=== PATIENT | female | born 1975 | race Caucasian/White ===

== ENCOUNTER → 2017-01-22 | Outpatient (CLI) | payer OTHER ==
--- NOTE | 2017-01-22 12:50 | XR ---
EXAMINATION TYPE: XR cervical spine comp, XR lumbar spine 2 or 3V, XR thoracic spine 2V DATE OF EXAM ORDERED: 01/22/2017 12:33 PM HISTORY: Neck pain. COMPARISON: None. FINDINGS: There is a reversal of normal cervical lordosis. There is minor antegrade listhesis of C3 on C4. Alignment is otherwise maintained. Atlantoaxial relationships are normal. There is mild disc space loss at C4-5 and C5-6 as well as C6-7. There is minor hypertrophic spondylos is at C5-6. There is intervertebral foraminal narrowing on the right at C3-4. There is no significant foraminal n arrowing on the left. The uncovertebral joints appear maintained. In the thoracic spine, the upper thoracic spine is not well seen in the lateral projection. Vertebral body height and alignment appear maintained. No fractures are seen. The spaces are reasonably well-m aintained. Paraspinal soft tissues are normal. The lumbar spine, vertebral body height and alignment are maintained. There is no evidence of spondyl olysis or spondylolisthesis. The pedicles are intact. IMPRESSION: 1. MILD DEGENERATIVE CHANGE, CERVICAL SPINE. 2. MODERATE INTERVERTEBRAL FORAMINAL NARROWING ON THE RIGHT AT C3-4.
== END | disposition home or self-care (01) ==
LOC: RADXRMAIN 12:03
PROVIDERS: ATTEND Internal Medicine
DX: M47.812 Spondylosis without myelopathy or radiculopathy, cervical region (principal); M99.71 Connective tissue and disc stenosis of intervertebral foramina of cervical region; R54 Age-related physical debility
CPT/HCPCS: 72050; 72070; 72100

== ENCOUNTER 2017-04-22 13:28 | Emergency (ER) | payer OTHER ==
[2017-04-22 13:37] VITALS: BP 129/72; PULSE 86; RESP 18; TEMP 98.1
[2017-04-22] MEDS ORDERED: CLINDAMYCIN 150 MG CAP PO STA (13:43)
[2017-04-22] MEDS ORDERED: HYDROcodone/APAP 10-325MG 1 EACH TAB PO ONE (13:43)
[2017-04-22] MEDS ORDERED: BUPIVACAINE (PF) 0.5% 30 ML VIAL SQ STA (13:44)
--- NOTE | 2017-04-22 14:08 | ED ---
Extremity Problem HPI - General Chief complaint: Extremity Problem,Nontraumatic Stated complaint: Hands swollen/numb Time Seen by Provider: 04/22/17 13:42 Source: patient, RN notes reviewed, old records reviewed Mode of arrival: ambulatory Limitations: no limitations - History of Present Illness Initial comments: Patient is a 41-year-old female presenting to emergency Department chief complaint of bilateral hand pain. 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 She states that over the past 3 days it's been some swelling and numbness and tingling to all of her hands. She states it starts in her wrist and goes down. She reports that she has had some previous problems with her right elbow and was diagnosed with tennis elbow. Patient denies any specific elbow or shoulder pain at this time. She denies any fever or chills, chest pain, shortness breath, nausea vomiting, abdominal pain, dysuria hematuria or any other symptoms. - Related Data Previous Rx's Medication Instructions Recorded Dexamethasone 0.75 mg PO DAILY #12 tab 04/22/17 traMADol HCl [Ultram] 50 mg PO Q6H PRN #10 tab 04/22/17 Allergies Allergy/AdvReac Type Severity Reaction Status Date / Time amitriptyline Allergy Unknown Verified 04/22/17 13:37 topiramate [From Topamax] Allergy Unknown Verified 04/22/17 13:37 Review of Systems ROS Statement: Those systems with pertinent positive or pertinent negative responses have been documented in the HPI. ROS Other: All systems not noted in ROS Statement are negative. Past Medical History Past Medical History: Osteoarthritis (OA) Additional Past Medical History / Comment(s): chronic neck and shoulder pain History of Any Multi-Drug Resistant Organisms: None Reported Past Surgical History: Section Additional Past Surgical History / Comment(s): right ovary removed Past Psychological History: No Psychological Hx Reported Smoking Status: Current every day smoker Past Alcohol Use History: Occasional Past Drug Use History: None Reported General Exam - General Exam Comments Initial Comments: Well-appearing 41-year-old female. No acute distress. Limitations: no limitations General appearance: alert, in no apparent distress Head exam: Present: atraumatic, normocephalic, normal inspection Eye exam: Present: normal appearance, PERRL, EOMI. Absent: scleral icterus, conjunctival injection, periorbital swelling ENT exam: Present: normal exam, mucous membranes moist Neck exam: Present: normal inspection. Absent: tenderness, meningismus, lymphadenopathy Respiratory exam: Present: normal lung sounds bilaterally. Absent: respiratory distress, wheezes, rales, rhonchi, stridor Cardiovascular Exam: Present: regular rate, normal rhythm, normal heart sounds. Absent: systolic murmur, diastolic murmur, rubs, gallop, clicks GI/Abdominal exam: Present: soft, normal bowel sounds. Absent: distended, tenderness, guarding, rebound, rigid Extremities exam: Present: normal inspection, full ROM, normal capillary refill , other (Patient reports pain and tenderness over bilateral breasts. She has full range of motion. She has less than 2 second capillary refill and full range of motion of her fingers.). Absent: tenderness, pedal edema, joint swelling, calf tenderness Back exam: Present: normal inspection Neurological exam: Present: alert, oriented X3, CN II-XII intact Psychiatric exam: Present: normal affect, normal mood Skin exam: Present: warm, dry, intact, normal color. Absent: rash Course Vital Signs 04/22/17 13:35 Temperature 98.1 F Pulse Rate 86 Respiratory 18 Rate Blood Pressure 129/72 O2 Sat by Pulse 100 Oximetry Medical Decision Making - Medical Decision Making Patient is a 41-year-old female presenting to emergency Department chief complaint of bilateral hand pain. 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 She states that over the past 3 days it's been some swelling and numbness and tingling to all of her hands. She states it starts in her wrist and goes down. She reports that she has had some previous problems with her right elbow and was diagnosed with tennis elbow. Patient has positive Tinel test. With bilateral carpal tunnel. Patient will be given a prescription for a left wrist sprain. She states that she does have one for her right. Patient will also be started on steroids short course of pain medicine and anti-inflammatory medicine. Discussed using her prescription for meloxicam. Patient agrees to following up with orthopedic. Patient understands treatment plan will comply. Return parameters were discussed. Disposition Clinical Impression: Carpal tunnel syndrome on both sides Disposition: HOME SELF-CARE Condition: Good Instructions: Paresthesia (ED) Additional Instructions: Advised to put ice over the wrist and hands. Use the wrist splint as directed. Also take the anti-inflammatory medication with a steroid and her previously prescribed meloxicam. Patient can also take the pain medication and 90 with the pain is severe. Discussed return to the emergency department if any alarming signs or symptoms occur. Follow-up with orthopedic physician. Prescriptions: Dexamethasone 0.75 mg PO DAILY #12 tab traMADol HCl [Ultram] 50 mg PO Q6H PRN #10 tab PRN Reason: Pain Referrals: Elvia Blanco MD [Primary Care Provider] - 1-2 days Iván Luciano PAC [PHYSICIAN GRUBBER] - 1-2 days Time of Disposition: 14:25
== END 2017-04-22 14:44 | disposition home or self-care (01) ==
LOC: EC 13:28
DX: G56.03 Carpal tunnel syndrome, bilateral upper limbs (principal); M19.90 Unspecified osteoarthritis, unspecified site; F17.200 Nicotine dependence, unspecified, uncomplicated; Z88.8 Allergy status to other drugs, medicaments and biological substances
CPT/HCPCS: 99283

== ENCOUNTER → 2017-06-22 | Outpatient (CLI) | payer OTHER ==
--- NOTE | 2017-06-22 13:05 | US ---
EXAMINATION TYPE: US thyroid st tissue head/neck DATE OF EXAM: 06/22/2017 COMPARISON: NONE CLINICAL HISTORY: R22.0 Swelling, Mass, Or Lump In Neck. GLAND SIZE: Right Lobe: 4.8 x 1.3 x 1.4 cm Overall Parenchyma: homogenous Left Lobe: 4.6 x 1.3 x 1.6 cm Overall Parenchyma: homogeneous Isthmus Thickness: 0.3 cm NODULES RIGHT: # of nodules measured on right: 1 1. 0.9 X 0.7 x 0.8 cm hypoechoic solid nodule at the mid pole with well-defined margins. This nodu le is wider than tall and shows no intranodular vascularity. This nodule also demonstrates increased through transmission despite diffuse low level internal echoes. This is favored to be located within the thyroid gland rather than parathyroid in origin. LEFT: # of nodules measured on left: 0 ISTHMUS: # of nodules measured in the isthmus: 0 Bilateral neck scanned, no evidence of lymphadenopathy IMPRESSION: Solitary right subcentimeter thyroid nodule. Surveillance is recommended.
== END | disposition home or self-care (01) ==
LOC: RADUSWWP 12:19
PROVIDERS: ATTEND Internal Medicine
DX: E04.1 Nontoxic single thyroid nodule (principal)
CPT/HCPCS: 76536

== ENCOUNTER 2019-07-02 15:19 | Emergency (ER) | payer BC, OTHER ==
[2019-07-02] MEDS ORDERED: HYDROcodone/APAP 5-325MG 1 EACH TAB PO STA (15:44)
[2019-07-02] MEDS ORDERED: IBUPROFEN 600 MG TAB PO STA (15:44)
--- NOTE | 2019-07-02 15:48 | ED ---
Abdominal Pain HPI - General Chief Complaint: Abdominal Pain Stated Complaint: low back pain Time Seen by Provider: 07/02/19 15:32 Source: patient, RN notes reviewed Mode of arrival: ambulatory Limitations: no limitations - History of Present Illness Initial Comments: 44-year-old female presented to the ER with chief complaint of low back pain. This has been ongoing for last couple weeks. Patient states is worse in her right low back. Patient states that she is worse with movement. Denies any abdominal pain she does state that her urine is more dark than usual she has no dysuria no reported fever states that she felt like she had some chills. Patient denies any trauma. She has no lower extremity symptoms paresthesias or weakness.Denies any saddle anesthesias no bowel bladder incontinence or retention. - Related Data Previous Rx's Medication Instructions Recorded Dexamethasone 0.75 mg PO DAILY #12 tab 04/22/17 traMADol HCl [Ultram] 50 mg PO Q6H PRN #10 tab 04/22/17 Cephalexin [Keflex] 500 mg PO Q8HR #21 cap 07/02/19 Cyclobenzaprine [Flexeril] 10 mg PO TID PRN #15 tab 07/02/19 Ibuprofen [Motrin] 600 mg PO Q8HR PRN #30 tab 07/02/19 Allergies Allergy/AdvReac Type Severity Reaction Status Date / Time amitriptyline Allergy Unknown Verified 07/02/19 15:30 topiramate [From Topamax] Allergy Unknown Verified 07/02/19 15:30 Review of Systems ROS Statement: Those systems with pertinent positive or pertinent negative responses have been documented in the HPI. ROS Other: All systems not noted in ROS Statement are negative. Past Medical History Past Medical History: Osteoarthritis (OA) Additional Past Medical History / Comment(s): chronic neck and shoulder pain History of Any Multi-Drug Resistant Organisms: None Reported Past Surgical History: Section Additional Past Surgical History / Comment(s): right ovary removed Past Psychological History: No Psychological Hx Reported Smoking Status: Current every day smoker Past Alcohol Use History: Occasional Past Drug Use History: None Reported General Exam Limitations: no limitations General appearance: alert, in no apparent distress Head exam: Present: atraumatic, normocephalic, normal inspection Eye exam: Present: normal appearance, PERRL, EOMI. Absent: scleral icterus, conjunctival injection, periorbital swelling ENT exam: Present: normal exam, normal oropharynx, mucous membranes moist Neck exam: Present: normal inspection, full ROM. Absent: tenderness, meningismus, lymphadenopathy Respiratory exam: Present: normal lung sounds bilaterally. Absent: respiratory distress, wheezes, rales, rhonchi, stridor Cardiovascular Exam: Present: regular rate, normal rhythm, normal heart sounds. Absent: systolic murmur, diastolic murmur, rubs, gallop, clicks GI/Abdominal exam: Present: soft, normal bowel sounds. Absent: distended, tenderness, guarding, rebound, rigid Back exam: Present: full ROM, tenderness, paraspinal tenderness. Absent: CVA tenderness (R), CVA tenderness (L), vertebral tenderness Neurological exam: Present: alert, oriented X3, CN II-XII intact Skin exam: Present: warm, dry, intact, normal color. Absent: rash Course Vital Signs 07/02/19 15:28 Temperature 97.9 F Pulse Rate 103 H Respiratory 16 Rate Blood Pressure 123/81 O2 Sat by Pulse 100 Oximetry Medical Decision Making - Medical Decision Making 44-year-old female presents for right low back pain, right flank pain. Urinalysis was initially obtained which showed evidence of blood. Patient had CT and shows evidence of possible colitis though she is asymptomatic and most likely to be colitis. Patient has evidence of cystitis on CT. Patient will be treated accordingly. Patient also is a lumbar strain. Patient will be discharged return parameters were discussed. - Lab Data Lab Results 07/02/19 Range/Units 16:03 Urine Color Yellow Urine Appearance Clear (Clear) Urine pH 6.0 (5.0-8.0) Ur Specific [place] 1.025 (1.001-1.035) Urine Protein Trace H (Negative) Urine Glucose (UA) Negative (Negative) Urine Ketones Negative (Negative) Urine Blood Small H (Negative) Urine Nitrite Negative (Negative) Urine Bilirubin Negative (Negative) Urine Urobilinogen 8.0 (<2.0) mg/dL Ur Leukocyte Esterase Negative (Negative) Urine RBC 10 H (0-5) /hpf Urine WBC 1 (0-5) /hpf Ur Squamous Epith Cells 7 H (0-4) /hpf Amorphous Sediment Rare H (None) /hpf Urine Mucus Occasional H (None) /hpf Disposition Clinical Impression: Lumbar back pain, Cystitis Disposition: HOME SELF-CARE Condition: Stable Instructions (If sedation given, give patient instructions): Acute Low Back Pain (ED) Additional Instructions: Please return to the Emergency Department if symptoms worsen or any other concerns. Prescriptions: Cyclobenzaprine [Flexeril] 10 mg PO TID PRN #15 tab PRN Reason: Muscle Spasm Cephalexin [Keflex] 500 mg PO Q8HR #21 cap Ibuprofen [Motrin] 600 mg PO Q8HR PRN #30 tab PRN Reason: Pain Is patient prescribed a controlled substance at d/c from ED?: No Referrals: None,Stated [Primary Care Provider] - 1-2 days Time of Disposition: 17:05
[2019-07-02 16:14] LABS: Amorphous Sediment,Urine Rare /hpf; Appearance,Urine Clear (Clear); Bilirubin,Urine Negative (Negative); Blood,Urine Small (Negative); Color,Urine Yellow; Glucose,Urine (UA) Negative (Negative); Ketones,Urine Negative (Negative); Leukocyte Esterase,Urine Negative (Negative); Mucus,Urine Occasional /hpf; Nitrite,Urine Negative (Negative); Protein,Urine Trace (Negative); RBC,Urine 10 /hpf (0-5); Specific Gravity,Urine 1.025 (1.001-1.035); Squamous Epithelial Cell,Urine 7 /hpf (0-4)
--- NOTE | 2019-07-02 16:56 | CT ---
EXAMINATION TYPE: CT abdomen pelvis wo con DATE OF EXAM: 07/02/2019 HISTORY: Right sided flank pain CT DLP: 406.3 mGycm. Automated Exposure Control for Dose Reduction was Utilized. TECHNIQUE: CT scan of the abdomen and pelvis is performed without oral or IV contrast. COMPARISON: NONE FINDINGS: Within the limitations of a non-contrast study, the following observations are made. LUNG BASES: No significant abnormality is appreciated. LIVER/GB: No significant abnormality is appreciated. PANCREAS: No significant abnormality is seen. SPLEEN: No significant abnormality is seen. ADRENALS: No significant abnormality is seen. KIDNEYS: No renal stones or hydronephrosis is seen bilaterally. No intraluminal calculi and poorly di stended bladder. Bladder wall thickness is 5 to 6 mm which is upper limits of normal to minimally thi ckened for a poorly distended bladder. BOWEL: Evaluation bowel suboptimal secondary to lack of enteric contrast. Appendix appears within nor mal limits for medial aspect of cecum. Mild wall thickening involving the right in transverse colon i s present.. GENITAL ORGANS: Anteverted uterus. Surgical sutures right pelvis without visualization of right ovary . Left ovary is upper limits of normal in size image 110. Scattered pelvic phleboliths bilaterally. LYMPH NODES: No greater than 1cm abdominal or pelvic lymph nodes are appreciated. OSSEOUS STRUCTURES: No significant abnormality is seen. OTHER: No significant additional abnormality is seen. IMPRESSION: No renal stones or hydronephrosis is seen bilaterally. Possible mild/moderate to long seg ment colitis, correlate clinically versus product of poor distention. Cannot entirely exclude acute b ladder infection or cystitis. Correlate clinically.
[2019-07-02] MEDS ORDERED: ACET/COD 300 MG/30 MG STARTER PACK 6 TAB BTL PO STA (17:04)
[2019-07-02 17:18] VITALS: BP 115/84; PULSE 75; RESP 18; TEMP 98.3
== END 2019-07-02 17:17 | disposition home or self-care (01) ==
LOC: EC 15:19
DX: N30.90 Cystitis, unspecified without hematuria (principal); M54.5 Low back pain; F17.200 Nicotine dependence, unspecified, uncomplicated; Z88.8 Allergy status to other drugs, medicaments and biological substances
CPT/HCPCS: 74176; 81001; 99284

== ENCOUNTER → 2019-11-07 | Outpatient (CLI) | payer BC ==
--- NOTE | 2019-11-07 14:35 | MM ---
Reason for exam: clinical finding. Indicated problem(s): palpable abnormality in the left breast. Physical Findings: Nurse Summary: 0.5 x 1cm and 1 x 1.5cm nodule in the left breast at 12 o'clock and 1 o'clock (nurse ts). MG 3D Diag Mammo W/Cad GRAYSON Bilateral CC and MLO view(s) were taken. The breast tissue is heterogeneously dense. This may lower the sensitivity of mammography. No suspicious abnormality. These results were verbally communicated with the patient and result sheet given to the patient on 11/07/19. ASSESSMENT: Incomplete: need additional imaging evaluation, BI-RAD 0 RECOMMENDATION: Ultrasound of the left breast. (palpables)
--- NOTE | 2019-11-07 14:38 | USB ---
Reason for exam: additional evaluation requested from abnormal screening. US Breast Limited LT Left limited breast ultrasound including focal area of concern, retroareolar and axilla demonstrates a 0.4 x 0.6 x 0.2cm oval, cystic cluster at 1 o'clock, a 0.6 x 0.5 x 0.3cm oval, cystic lesion at 2 o'clock, a 0.4 x 0.4 x 0.3cm oval, cystic lesion at 2 o'clock BB, a 1.3 x 1.1 x 0.6cm oval, microlobular, hyoechoic, vascular lymph node at 3 o'clock and a 1.7 x 1.2 x 0.7cm oval lymph node at the axilla. These results were verbally communicated with the patient and result sheet given to the patient on 11/07/19. ASSESSMENT: Benign, BI-RAD 2 RECOMMENDATION: Routine screening mammogram of both breasts in 1 year.
== END | disposition home or self-care (01) ==
LOC: RADMAMWWP 13:05
PROVIDERS: ATTEND Obstetrics & Gynecology
DX: N64.4 Mastodynia (principal); N63.20 Unspecified lump in the left breast, unspecified quadrant
CPT/HCPCS: 77062; 77066

== ENCOUNTER → 2021-03-11 | Outpatient (CLI) | payer BC ==
--- NOTE | 2021-03-12 03:57 | MR ---
EXAMINATION TYPE: MR cervical spine wo con DATE OF EXAM: 03/11/2021 COMPARISON: None HISTORY: Neck pain down right arm and headaches since 2001 from falling down stairs. Cervical vertebra have fairly normal alignment. There is minor degenerative disc space narrowing and decreased signal in the disks at C4-5 and C5-6. There is minimal posterior disc bulge at C3-4 C4-5 an d C5-6 without impingement on the spinal canal. Cervical spinal cord has normal signal pattern. There is no edema. There is no spinal stenosis. The narrowest point of the spinal canal is at C5-6 with me asures 9 mm. The facet joints are intact. Brainstem appears intact. The skull base appears intact. I see no bony d estructive process. IMPRESSION: Mild degenerative disc changes and disc bulging as above in the mid cervical spine. No spinal stenosi s. No fracture.
== END | disposition home or self-care (01) ==
LOC: RADMRIMAIN 18:43
PROVIDERS: ATTEND Internal Medicine
DX: M50.222 Other cervical disc displacement at C5-C6 level (principal); M50.322 Other cervical disc degeneration at C5-C6 level
CPT/HCPCS: 72141